=== PATIENT | female | born 1970 | race Caucasian/White ===

== ENCOUNTER 2018-05-02 16:18 | Emergency (ER) | payer MEDICARE ==
[2018-05-02 16:54] VITALS: BP 136/75; PULSE 88; RESP 18; TEMP 98.3
--- NOTE | 2018-05-02 17:30 | ED ---
Psych HPI - General Source: patient, RN notes reviewed, old records reviewed Mode of arrival: ambulatory - History of Present Illness MD Complaint: suicidal ideation, feels depressed -: unknown Associated Psychiatric Symptoms: depression, suicidal ideation History of same: Yes Quality: getting worse Improves With: none Worsens With: none Context: significant life stressor Associated Symptoms: denies other symptoms Treatments Prior to Arrival: none <Heladio Ohara - Last Filed: 05/02/18 20:27> <Shazia Lott - Last Filed: 05/02/18 23:23> - General Chief Complaint: Psychiatric Symptoms Stated Complaint: Psych eval Time Seen by Provider: 05/02/18 17:28 - History of Present Illness Initial Comments: This is a 47-year-old female the ER for evaluation. Patient feels very is depressed and suicidal. States she does want to kill herself. Denies drug or alcohol abuse today. Patient has no history of same. Denies any medications taking any medications or history of psychiatric illness (Heladio Ohara) - Related Data Home Medications Medication Instructions Recorded Confirmed ALPRAZolam [Xanax] 1 mg PO DAILY PRN 05/02/18 05/02/18 ALPRAZolam [Xanax] 2 mg PO HS 05/02/18 05/02/18 Gemfibrozil [Lopid] 600 mg PO AC-BID 05/02/18 05/02/18 HYDROcodone/APAP 10-325MG [[place] 1 tab PO Q6H PRN 05/02/18 05/02/18 10-325] Imipramine HCl [Tofranil] 200 mg PO HS 05/02/18 05/02/18 Kenalog 0.5% Ointment 1 applic TOPICAL BID 05/02/18 05/02/18 Lovastatin [Mevacor] 40 mg PO AC-SUPPER 05/02/18 05/02/18 Lurasidone [Latuda] 80 mg PO HS 05/02/18 05/02/18 Omeprazole 20 mg PO AC-BRKFST 05/02/18 05/02/18 Pindolol [Visken] 10 mg PO BID 05/02/18 05/02/18 SUMAtriptan SUCCINATE [Imitrex] 100 mg PO DIRECTED PRN 05/02/18 05/02/18 lamoTRIgine [LaMICtal] 250 mg PO HS 05/02/18 05/02/18 rOPINIRole HCL [Requip] 2 mg PO HS 05/02/18 05/02/18 rOPINIRole HCL [Requip] 2 mg PO HS 05/02/18 05/02/18 Allergies Allergy/AdvReac Type Severity Reaction Status Date / Time azithromycin AdvReac Nausea & Verified 05/02/18 17:46 [From Zithromax Z-Gael] Vomiting Review of Systems ROS Other: All systems not noted in ROS Statement are negative. <Heladio Ohara - Last Filed: 05/02/18 20:27> ROS Other: All systems not noted in ROS Statement are negative. <Shazia Lott - Last Filed: 05/02/18 23:23> ROS Statement: Those systems with pertinent positive or pertinent negative responses have been documented in the HPI. Past Medical History Past Medical History: Fibromyalgia, Osteoarthritis (OA) Additional Past Medical History / Comment(s): tachycardia History of Any Multi-Drug Resistant Organisms: None Reported Past Surgical History: Section, Orthopedic Surgery Additional Past Surgical History / Comment(s): knee Past Psychological History: No Psychological Hx Reported, Anxiety, Depression Smoking Status: Current every day smoker Past Alcohol Use History: Rare Past Drug Use History: None Reported <Heladio Ohara - Last Filed: 05/02/18 20:27> General Exam Limitations: no limitations General appearance: alert, in no apparent distress Head exam: Present: atraumatic, normocephalic, normal inspection Eye exam: Present: normal appearance, PERRL, EOMI. Absent: scleral icterus, conjunctival injection, periorbital swelling ENT exam: Present: normal exam, mucous membranes moist Neck exam: Present: normal inspection. Absent: tenderness, meningismus, lymphadenopathy Respiratory exam: Present: normal lung sounds bilaterally. Absent: respiratory distress, wheezes, rales, rhonchi, stridor Cardiovascular Exam: Present: regular rate, normal rhythm, normal heart sounds. Absent: systolic murmur, diastolic murmur, rubs, gallop, clicks GI/Abdominal exam: Present: soft, normal bowel sounds. Absent: distended, tenderness, guarding, rebound, rigid Extremities exam: Present: normal inspection, full ROM, normal capillary refill. Absent: tenderness, pedal edema, joint swelling, calf tenderness Back exam: Present: normal inspection Neurological exam: Present: alert, oriented X3, CN II-XII intact Psychiatric exam: Present: normal affect, normal mood Skin exam: Present: warm, dry, intact, normal color. Absent: rash <Heladio Ohara - Last Filed: 05/02/18 20:27> Course <Heladio Ohara - Last Filed: 05/02/18 20:27> <Shazia Lott - Last Filed: 05/02/18 23:23> Vital Signs 05/02/18 16:50 Temperature 98.3 F Pulse Rate 88 Respiratory 18 Rate Blood Pressure 136/75 O2 Sat by Pulse 95 Oximetry - Reevaluation(s) Reevaluation #1: 05/02/18 20:26 Medical clear for psychiatric evaluation (Heladio Ohara) Medical Decision Making <Heladio Ohara - Last Filed: 05/02/18 20:27> <Shazia Lott - Last Filed: 05/02/18 23:23> - Medical Decision Making Patient care was signed out to me by Dr. Michelle, at shift change. Patient presented with expressing depression, patient was evaluated by EPS nurse. Patient expresses depression but no suicidality. Patient states that she feels that she needs therapy or group therapy due to her grief over her recent divorce. At this time as determined patient is stable for discharge home with outpatient follow-up. Patient was given outpatient resources and discharged home in stable condition. (Shazia Lott) - Lab Data Lab Results 05/02/18 Range/Units 20:20 Urine Opiates Screen Detected H (NotDetected) Ur Oxycodone Screen Not Detected (NotDetected) Urine Methadone Screen Not Detected (NotDetected) Ur Propoxyphene Screen Not Detected (NotDetected) Ur Barbiturates Screen Not Detected (NotDetected) U Tricyclic Antidepress Detected H (NotDetected) Ur Phencyclidine Scrn Not Detected (NotDetected) Ur Amphetamines Screen Not Detected (NotDetected) U Methamphetamines Scrn Not Detected (NotDetected) U Benzodiazepines Scrn Detected H (NotDetected) Urine Cocaine Screen Not Detected (NotDetected) U Marijuana (THC) Screen Not Detected (NotDetected) Disposition <Heladio Ohara B - Last Filed: 05/02/18 20:27> Is patient prescribed a controlled substance at d/c from ED?: No <Shazia Lott P - Last Filed: 05/02/18 23:23> Clinical Impression: Depression Disposition: HOME SELF-CARE Condition: Stable Instructions (If sedation given, give patient instructions): Depression (DC) Referrals: Jeremiah Grady MD [Primary Care Provider] - 1-2 days
[2018-05-02] MEDS ORDERED: ACETAMINOPHEN TAB 500 MG TAB PO STA (21:00)
[2018-05-02] MEDS ORDERED: IBUPROFEN 800 MG TAB PO STA (21:10)
[2018-05-02 21:49] LABS: Amphetamine Screen,Urine Not Detected (NotDetected); Barbiturate Screen,Urine Not Detected (NotDetected); Benzodiazepines Screen,Urine Detected (NotDetected); Cocaine Screen,Urine Not Detected (NotDetected); Methadone Screen, Urine Not Detected (NotDetected); Opiate Screen,Urine Detected (NotDetected); Oxycodone Screen, Urine Not Detected (NotDetected); Phencyclidine Screen,Urine Not Detected (NotDetected); Tricyclic Antidepressant,Urine Detected (NotDetected); Urn Cannabinoid Scrn Not Detected (NotDetected)
== END 2018-05-02 22:07 | disposition home or self-care (01) ==
LOC: EC 16:18
DX: F32.9 Major depressive disorder, single episode, unspecified (principal); M79.7 Fibromyalgia; F41.9 Anxiety disorder, unspecified; F17.200 Nicotine dependence, unspecified, uncomplicated; Z79.899 Other long term (current) drug therapy; Z88.1 Allergy status to other antibiotic agents
CPT/HCPCS: 80306; 82075; 99284

== ENCOUNTER → 2018-08-11 | Outpatient (CLI) | payer MEDICARE ==
--- NOTE | 2018-08-11 09:45 | US ---
EXAMINATION TYPE: US abdomen complete DATE OF EXAM: 08/11/2018 COMPARISON: NONE CLINICAL HISTORY: R10.84 ABD PAIN. Only pelvic symptoms no abd symptoms EXAM MEASUREMENTS: Liver Length: 21.0 cm Gallbladder Wall: 0.2 cm CBD: 0.5 cm Spleen: 12.0 cm Right Kidney: 12.5 x 5.1 x 4.3 cm Left Kidney: 11.0 x 5.3 x 5.9 cm suboptimal imaging due to body habitus and bowel gas Pancreas: Head and body slightly echogenic. There is some obscuration of the head and tail of the pa ncreas due to bowel gas. Liver: enlarged, focal fatty sparing seen at [place] hepatis Gallbladder: wnl Evidence for sonographic Gomez's sign: no CBD: wnl Spleen: wnl Right Kidney: wnl Left Kidney: wnl Upper IVC: wnl Abd Aorta: limited views IMPRESSION: 1. Some limitation on the examination due to body habitus. 2. Hepatomegaly with mild fatty infiltration of the liver.
--- NOTE | 2018-08-11 09:50 | US ---
EXAMINATION TYPE: US pelvic limited DATE OF EXAM: 08/11/2018 COMPARISON: NONE CLINICAL HISTORY: R10.2 PELVIC PAIN. pelvic itching, yeast infection, total hysterectomy 2001 TECHNIQUE: TA. Transabdominal sonographic images of the pelvis were acquired. Date of LMP: 2001 EXAM MEASUREMENTS: Uterus: Surgically absent Endometrial Stripe: Surgically absent Right Ovary: Surgically absent Left Ovary: Surgically absent 1. Uterus: Surgically absent 2. Endometrium: Surgically absent 3. Right Ovary: Surgically absent 4. Left Ovary: Surgically absent 5. Bilateral Adnexa: wnl 6. Posterior cul-de-sac: wnl Urinary bladder as visualized is sonolucent. IMPRESSION: 1. Normal post hysterectomy pelvic ultrasound
== END | disposition home or self-care (01) ==
LOC: RADUSWWP 08:28
PROVIDERS: ATTEND Family Medicine
DX: K76.0 Fatty (change of) liver, not elsewhere classified (principal); R16.0 Hepatomegaly, not elsewhere classified; Z90.710 Acquired absence of both cervix and uterus
CPT/HCPCS: 76700; 76857

== ENCOUNTER → 2019-04-12 | Outpatient (CLI) | payer MEDICARE ==
--- NOTE | 2019-04-12 17:56 | CONS ---
CONSULTATION DATE OF SERVICE: 04/12/2019 This patient is a 48-year-old lady who has been evaluated in the sleep center for possible obstructive sleep apnea-hypopnea syndrome and significant excessive daytime sleepiness. HISTORY OF PRESENT ILLNESS/SLEEP-WAKE EVALUATION: Patient's usual sleep schedule is in the range from 10 p.m. to 2 a.m. until 7:30 a.m. Usually no problems with falling asleep, although she has a TV set in the bedroom. She sleeps with snoring and has multiple awakenings from sleep with nocturia, dry mouth, episodes of panic attack, palpitations, heartburn, restless legs and sweating. In the morning the patient wakes up tired, has difficulties paying attention, falling asleep during the day, worries about her sleep. [place] Sleepiness Scale in extremely high range of 17. She takes naps up to 4 times a day at any time and usually does not feel refreshed after a nap. She may see vivid dreams during naps. No history of hypnagogic hallucinations or cataplexy. Positive history of paralysis. PAST MEDICAL HISTORY: Past medical history is positive for migraines, bipolar, depression, anxiety, fibromyalgia, osteoarthritis, hyperlipidemia, acid reflux. PAST SURGICAL HISTORY: Total hysterectomy, bilateral arthroscopic knee surgery. Two C-sections. MEDICATIONS: Alprazolam, Colace, gemfibrozil, hydrocodone, acetaminophen, imipramine, lamotrigine, Latuda, lovastatin, Lovaza, Lyrica, omeprazole, Pepcid, Pindolol, ropinirole, sumatriptan. SOCIAL HISTORY: Positive for smoking up to 2 packs a day for 30 years. Alcohol consumption rarely. FAMILY HISTORY: Positive for hypertension, heart problems, hyperlipidemia, arthritis, headaches, colon cancer, throat and mouth cancer. Acid reflux, diabetes, mental illness, restless legs. REVIEW OF SYSTEMS: Multiple awakenings from sleep, tiredness and sleepiness during the day. Pain in the body. PHYSICAL EXAMINATION: GENERAL: A pleasant lady without distress. VITAL SIGNS: BP 111/63, HR 88, RR 16, height 5 feet 1/2 inch, weight 228 pounds. Body mass index 43.7, temperature 98.6, oxygen saturation on room air 98%. HEENT: PERRLA, EOMI. Evaluation of oropharynx showed tongue protrudes midline. Extremely low position of soft palate. Mallampati IV. Restriction of nasal breathing bilaterally. NECK: Supple. No JVD. Thyroid is not palpable. Extremely wide neck; 20-1/2 inches in circumference. LUNGS: Clear to percussion and to auscultation. Good air exchange. No wheezing or rhonchi. HEART: S1, S2 regular. No murmurs, gallops or rubs. ABDOMEN: Obese. EXTREMITIES: One plus bilateral ankle edema. PATTERN SETTER: Awake, alert, and oriented X3. Cranial nerves 2 to 7 intact. There is no fasciculation or atrophy. noted. No focal deficits observed. IMPRESSION: 1. Snoring, multiple awakenings from sleep with nocturia, sleepiness, extremely low position of soft palate, extremely wide neck, restriction of nasal breathing; obstructive sleep apnea-hypopnea syndrome. 2. History of sleep of paralysis. 3. Obesity. BMI 43.7. 4. History of restless legs syndrome, on treatment with dopaminergic agonists. 5. Significant excessive daytime sleepiness. [place] Sleepiness Scale is 17. The patient may take up to 4 naps a day, sometimes seeing vivid dreams. Differential diagnosis includes hypersomnia. 6. History of bipolar. 7. History of depression. 8. History of anxiety. 9. Status post total hysterectomy. 10.Status post bilateral knee arthroscopic surgery. 11.Status post 2 sections. 12.History of fibromyalgia. 13.History of osteoarthritis. 14.Hyperlipidemia. 15.Acid reflux. PLAN: 1. Polysomnography for evaluation of patient's breathing during sleep. 2. CPAP/BiPAP titration if sleep study confirms obstructive sleep apnea-hypopnea syndrome. 3. Preferable position during sleep on the side. 4. No driving if patient feels any sleepiness. 5. I will see patient for follow up visit to explain results of testing and following plan. 6. Multiple sleep latency test if sleep study is negative for obstructive sleep apnea- hypopnea syndrome, but I think the probability of that is extremely low. Thank you very much for referring this patient for consultation. Sincerely, Andrea Flores MD, PhD, FAASM Diplomat of [employer] [employer] Pl[employer] of [facility] [employer] MMODL / IJN: [id number] /
== END | disposition home or self-care (01) ==
LOC: SLEEP 11:37
PROVIDERS: ATTEND Internal Medicine
DX: R06.83 Snoring (principal); E66.9 Obesity, unspecified; Z68.41 Body mass index [BMI] 40.0-44.9, adult; E78.5 Hyperlipidemia, unspecified; K21.9 Gastro-esophageal reflux disease without esophagitis; F17.210 Nicotine dependence, cigarettes, uncomplicated; R00.2 Palpitations; R12 Heartburn; F41.0 Panic disorder [episodic paroxysmal anxiety]; R35.1 Nocturia; R68.2 Dry mouth, unspecified; Z86.59 Personal history of other mental and behavioral disorders; Z87.39 Personal history of other diseases of the musculoskeletal system and connective tissue; Z90.710 Acquired absence of both cervix and uterus; Z96.653 Presence of artificial knee joint, bilateral; Z98.890 Other specified postprocedural states; Z79.891 Long term (current) use of opiate analgesic; Z79.899 Other long term (current) drug therapy
CPT/HCPCS: 99211

== ENCOUNTER → 2019-10-02 | Outpatient (CLI) | payer MEDICARE ==
[2019-10-02 14:02] LABS: Basophils # (A) 0.1 k/uL (0-0.2); Basophils % (A) 1 %; Eosinophils # (A) 0.4 k/uL (0-0.7); Eosinophils % (A) 7 %; HCT 37.6 % (34.0-46.0); HGB 12.5 gm/dL (11.4-16.0); Lymphocytes # (A) 2.3 k/uL (1.0-4.8); Lymphocytes % (A) 37 %; MCH 31.2 pg (25.0-35.0); MCHC 33.1 g/dL (31.0-37.0); MCV 94.2 fL (80.0-100.0); Mean Platelet Volume 7.5; Monocytes # (A) 0.4 k/uL (0-1.0); Monocytes % (A) 6 %; Neutrophils # (A) 2.9 k/uL (1.3-7.7); Neutrophils % (A) 46 %; Platelet Count 242 k/uL (150-450); RBC 3.99 m/uL (3.80-5.40); RDW 13.3 % (11.5-15.5); WBC 6.3 k/uL (3.8-10.6)
[2019-10-02 14:25] LABS: ALT 32 U/L (4-34); AST 37 U/L (14-36); African American GFR (CKD) >90 (>60 ml/min/1.73 sqM); Anion Gap 5 mmol/L; Blood Urea Nitrogen 8 mg/dL (7-17); C Reactive Protein 8.8 mg/L (<10.0); Calcium 9.5 mg/dL (8.4-10.2); Carbon Dioxide 28 mmol/L (22-30); Chloride 103 mmol/L (98-107); Creatine Kinase 178 U/L (30-135); Glucose 87 mg/dL (74-99); Non-African American GFR(CKD) 87 (>60 ml/min/1.73 sqM); Potassium 4.2 mmol/L (3.5-5.1); Sodium 136 mmol/L (137-145); Uric Acid 5.6 mg/dL (3.7-7.4)
[2019-10-02 14:38] LABS: T4, Free (Free Thyroxine) 0.99 ng/dL (0.78-2.19)
[2019-10-02 15:09] LABS: Erythrocyte Sedimentation Rate 16 mm/hr (0-20)
--- NOTE | 2019-10-02 16:45 | US ---
EXAMINATION TYPE: US venous doppler duplex LE DATE OF EXAM: 10/02/2019 12:41 PM COMPARISON: NONE CLINICAL HISTORY: I80.9 PHLEBITIS AND THROMBOPHLEBITIS. Bilateral knee pain. Not on blood thinners. SIDE PERFORMED: Bilateral TECHNIQUE: The lower extremity deep venous system is examined utilizing real time linear array sonog sathish with graded compression, doppler sonography and color-flow sonography. VESSELS IMAGED: External Iliac Vein (EIV) Common Femoral Vein Deep Femoral Vein Greater Saphenous Vein * Femoral Vein Popliteal Vein Small Saphenous Vein * Proximal Calf Veins (* superficial vessels) Right Leg: Negative for DVT Left Leg: Negative for DVT IMPRESSION: 1. Bilateral lower extremity ultrasound negative for deep venous thrombosis.
[2019-10-02 22:14] LABS: Cyclic Citrull Pep IgG Unit 0.7 U/mL; Cyclic Citrullinated Pep IgG NEGATIVE (NEGATIVE)
[2019-10-03 03:48] LABS: Rheumatoid Factor, Qnt 8 IU/mL (0-15)
[2019-10-03 08:39] LABS: Angiotensin-1 Converting Enz. 85 U/L (8-52)
[2019-10-03 11:40] LABS: HLA B27 NEGATIVE
[2019-10-03 16:38] LABS: Vitamin D, 1, 25-Dihydroxy 37 pg/mL (20 - 79)
== END | disposition home or self-care (01) ==
LOC: RADUSWWP 12:17
PROVIDERS: ATTEND Orthopaedic Surgery
DX: M17.0 Bilateral primary osteoarthritis of knee (principal); M25.561 Pain in right knee
CPT/HCPCS: 80048; 82164; 82306; 82550; 82652; 84439; 84443; 84450; 84460; 84550; 85025; 85652; 86038; 86140; 86200; 86431; 86812; 93970